=== PATIENT | male | born 1945 | race Caucasian/White ===

== ENCOUNTER 2018-01-22 12:50 | Emergency (ER) | payer SELFPAY ==
--- OUTSIDE RECORDS SUMMARY | 2018-01-22 12:54 | XMS REPORT | Continuity of Care Document ---
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Confirmed</span [place] >) [facility] Diabetes Active Problem 08/29/2015 OPID mellitus type 2 [facility] DM - Diabetes Resolved Problem 08/29/2015 OPID mellitus [facility] Grieving Resolved Problem 08/29/2015 OPID [facility]it,[facility] HTN - Res[facility] 08/29[facility] CAD Resolved Problem 03/07/2013 [facility] Grieving Resolved Problem 03/07/2013 [facility] INTESTINAL Active [facility] OBSTRUCT [facility] Medications Medication Details Route Status Patient Ordering Order Source Instructions Provider Date Fentanyl 100 Inactive 08/25[facility] microgram, 2015 Medical Route: IV, Center ONCE, Dosing Weight 90.909, kg, Start date: 08/26/15 13:16:00 CDT, Stop date: 08/26/15 13:16:00 CDT Midazolam 2 mg, Route: Inactive 08/25/ [facility] IVP, ONCE, 2015 Medical Dosing Weight Center 90.909, kg, Start date: 08/26/15 13:16:00 CDT, Stop date: 08/26/15 13:16:00 CDT iodixanol 200 mL, Inactive 08/25/ [facility] Route: 2016 Medical INTRAARTERIAL Center , ONCE, Dosing Weight 90.909, kg, Start date: 08/26/15 13:16:00 CDT, Stop date: 07/20/16 13:16:00 CDT docusate sodium 100 100 mg=1 cap, Active [facility] mg oral capsule PO, BID, # 30 2013 Medical cap, 0 Center Refill(s) acetaminophen-hydroco 1 tab, PO, Active [facility] [place] done 325 mg-5 mg oral Q4H, Pain 2013 Medical tablet Score 1-3, # Center 30 tab, 0 Refill(s) sertraline 50 mg, 1 tab, No Longer [place] Route: PO, Active 2013 Medical Drug form: Center TAB, Bedtime, Dosing Weight 111.364, kg, Start date: 03/04/13 21:00:00, Duration: 30 day, Stop date: 04/02/13 21:00:00(Same as: Zoloft) meloxicam 15 mg, 1 tab, No Longer [place] Route: PO, 2013 Medical Drug form: Center TAB, Daily, Dosing Weight 111.364, kg, Start date: 03/04/13 21:00:00, Duration: 30 day, Stop date: 04/02/13 21:00:00(Same as: Mobic) gabapentin 600 mg, 2 No Longer [place] cap, Route: Active 2013 Medical PO, Drug Center form: CAP, Daily, Dosing Weight 111.364, kg, Start date: 03/04/13 21:00:00, Duration: 30 day, Stop date: 04/02/13 21:00:00(Same as: Neurontin) Lovenox 40 mg, 0.4 No Longer [place] mL, Route: Active 2013 Medical SUB-Q, Drug Center form: INJ, [id number], Dosing Weight 111.364, kg, Start date: 03/04/13 21:00:00, Duration: 30 day, Stop date: 04/02/13 21:00:00(Same as: Lovenox) Cipro 400 mg, 200 No Longer [place] [facility] mL, Route: Active 2013 Medical IVPB, Drug Center form: INJ, [id number], Start date: 03/04/13 20:00:00, Duration: 30 day, Stop date: 04/03/13 8:00:00Do not refrigerate Flagyl 500 mg, 100 No Longer [place] mL, Route: Active 2013 Medical IVPB, Drug Center form: INJ, [id number], Dosing Weight 111.364, kg, Start date: 03/04/13 18:00:00, Duration: 30 day, Stop date: 04/03/13 12:00:00(Same as: Flagyl) Avoid alcohol. ciprofloxacin 200 mg, 100 Inactive [place] mL, Route: 2013 Medical IVPB, Drug Center form: INJ, [id number], Dosing Weight 111.364, kg, Start date: 03/04/13 18:00:00, Duration: 30 day, Stop date: 04/03/13 6:00:00 Protonix 40 mg, 1 tab, No Longer [place] [facility] Route: PO, Active 2013 Medical Drug form: Center ECTAB, Before Dinner, Start date: 03/04/13 16:30:00, Duration: 30 day, Stop date: 04/02/13 16:30:00Table t should not be chewed or crushed. (Same as: Protonix) Mobic 15 mg oral 15 mg=1 tab, Active [place] tablet PO, Daily, # 2013 Medical 30 tab, 0 Center Refill(s) Humalog SUB-Q, PUMP, Active [facility] 0 2013 Medical Refill(s)PUMP Center nitroglycerin PO, as needed Active [facility] for chest 2013 Medical pain, 0 Center Refill(s) melatonin 1 mg, PO, Active [facility] Bedtime, 0 2013 Medical Refill(s) Center Effient 10 mg oral 10 mg=1 tab, Active [facility] tablet PO, Daily, # 2013 Medical 30 tab, 0 Center Refill(s) aspirin 81 mg tablet, 81 mg=1 tab, Active [facility] enteric coated PO, Daily, # 2013 Medical 0 tab, 0 Center Refill(s) Norvasc 10 mg, 1 tab, No Longer [place] Route: PO, Active 2013 Medical Drug form: Center TAB, Daily, Dosing Weight 111.364, kg, Start date: 03/04/13 11:00:00, Duration: 30 day, Stop date: 04/03/13 9:00:00(Same as: Norvasc) acetaminophen-hydroco 1 tab, Route: No Longer ord [place] done 325 mg-5 mg oral PO, Drug Active 2013 Medical tablet Form: TAB, Center Dosing Weight 111.364, kg, Q4H, PRN Pain Score 1-3, Start date: 03/04/13 9:20:00, Duration: 30 day, Stop date: 04/03/13 9:19:00(Same as: Weed 325/5) Do not exceed 4gm/day of acetaminophen . aspirin 81 mg, 1 tab, No Longer [place] [facility] Route: PO, Active 2013 Medical Drug form: Center CHEWTAB, Daily, Dosing Weight 111.364, kg, Start date: 03/04/13 9:00:00, Stop date: 04/02/13 9:00:00Take with food. metoprolol tartrate 50 mg, 1 tab, No Longer [place] [facility] Route: PO, Active 2013 Medical Drug form: Center TAB, BID, Dosing Weight 111.364, kg, Start date: 03/04/13 9:00:00, Stop date: 04/02/13 17:00:00(Same as: Lopressor) hydrochlorothiazide 12.5 mg, 1 No Longer [place] [facility] cap, Route: Active 2013 Medical PO, Drug Center form: CAP, Daily, Dosing Weight 111.364, kg, Start date: 03/04/13 9:00:00, Stop date: 04/02/13 9:00:00(Same as: Microzide) With food. lansoprazole 30 mg, Route: Inactive [facility] PO, Daily, 2013 Medical Dosing Weight Center 111.364, kg, Start date: 03/04/13 9:00:00, Duration: 30 day, Stop date: 04/02/13 9:00:00 losartan 100 mg, 2 No Longer [place] [facility] tab, Route: Active 2013 Medical PO, Drug Center form: TAB, Daily, Dosing Weight 111.364, kg, Start date: 03/04/13 9:00:00, Stop date: 04/02/13 9:00:00(Same as: Cozaar) Effient 10 mg, 1 tab, No Longer [place] [facility] Route: PO, Active 2013 Medical Drug form: [place] TAB, Daily, Dosing Weight 111.364, kg, Start date: 03/04/13 9:00:00, Duration: 30 day, Stop date: 04/02/13 9:00:00Same as Effient For patients 60kg, without history of TIA/Ischemic stroke and without likely bypass surgery amLODIPine 10 mg, 1 tab, Inactive [facility] Route: PO, 2013 Medical Drug form: [place] TAB, Daily, Dosing Weight 111.364, kg, Start date: 03/04/13 9:00:00, Duration: 30 day, Stop date: 04/02/13 9:00:00(Same as: Norvasc) pneumococcal 0.5 ml, Inactive SYSTEM [facility] 23-valent vaccine Route: IM, 2013 Medical Drug Form: [place] INJ, Daily, Start date: 03/04/13 9:00:00, Duration: 1 doses or times, Stop date: 03/04/13 9:00:00(Same as: Pneumovax 23) Refrigerate docusate 100 mg, 1 No Longer [place] [facility] cap, Route: Active 2013 Medical PO, Drug Center form: CAP, BID, Dosing Weight 111.364, kg, Start date: 03/04/13 9:00:00, Duration: 30 day, Stop date: 04/02/13 17:00:00(Same as: Colace) (Do Not Crush) Zoloft 50 mg, PO, Active [facility] Bedtime, 0 2013 Medical Refill(s) Center Insulin regular 8 unit, 0.08 No Longer [place] [facility] mL, Route: Active 2013 Medical SUB-Q, Drug Center form: SOLN, TID-Before Meals, Dosing Weight 111.364, kg, PRN Blood Glucose Results, Start date: 03/04/13 1:00:00, Duration: 30 day, Stop date: 04/03/13 0:59:00(Same as: Humulin R) Roll in palms of hands gently; Do not shake vigorously. "single patient use only" (Restricted to patients requiring a dose > 60 units) Stable for 28 days at room temperature Expires in days from _Date enoxaparin 40 mg, 0.4 Inactive [facility] mL, Route: 2013 Medical SUB-Q, Drug Center form: INJ, [id number], Dosing Weight 111.364, kg, Start date: 03/04/13 1:00:00, Duration: 30 day, Stop date: 04/02/13 1:00:00(Same as: Lovenox) Dextrose 50% Syringe 12.5 gm, 25 No Longer [place] [facility] mL, Route: Active 2013 Medical IVP, Drug Center Form: INJ, Dosing Weight 111.364, kg, PRN, PRN Blood Glucose Results, Start date: 03/04/13 1:00:00, Duration: 30 day, Stop date: 04/03/13 0:59:00 glucagon 1 mg, Route: No Longer [place] [facility] IM, Drug Active 2013 Medical form: Center PDR/INJ, PRN, Dosing Weight 111.364, kg, PRN Blood Glucose Results, Start date: 03/04/13 1:00:00, Duration: 30 day, Stop date: 04/03/13 0:59:00 LR IV 1,000 mL 1,000 mL, No Longer [place] [facility] Rate: 125 Active 2013 Medical ml/hr, Infuse Center over: 8 hr, Route: IV, Dosing Weight 111.364 kg, Total Volume: 1,000, Start date: 03/04/13 0:35:00, Duration: 30 day, Stop date: 04/03/13 0:34:00 docusate 100 mg, Inactive [place] [facility] Route: PO, 2013 Medical BID, Dosing Center Weight 111.364, kg, PRN Constipation, Start date: 03/04/13 0:33:00, Duration: 30 day, Stop date: 04/03/13 0:32:00 morphine Sulfate 2 mg, 1 mL, No Longer [place] [facility] Route: IVP, Active 2013 Medical Drug form: Center INJ, Q3H, Dosing Weight 111.364, kg, PRN Pain Score 4-6, Start date: 03/04/13 0:33:00, Duration: 30 day, Stop date: 04/03/13 0:32:00(Same as:MORPhine Sulfate) acetaminophen-hydroco 1 tab, Route: Inactive [place] 03/04[facility] [place] done 325 mg-5 mg oral PO, Drug 2013 Medical tablet Form: TAB, Center Dosing Weight 111.364, kg, Q4H, PRN Pain Score 1-3, Start date: 03/04/13 0:33:00, Duration: 30 day, Stop date: 04/03/13 0:32:00(Same as: Weed 325/5) Do not exceed 4gm/day of acetaminophen . Sodium Chloride 0.9% 1,000 mL, Inactive [place] 03/04[facility] IV 1,000 mL Rate: 1,000 2013 Medical ml/hr, Infuse Center over: 1 hr, Route: IV, Dosing Weight 111.364 kg, Total Volume: 1,000, Priority: STAT, Start date: 03/03/13 23:23:00, Duration: 1 doses or times, Stop date: 03/04/13 0:22:00, [facility] DoseBolus Dose Sodium Chloride 0.9% 1,000 mL, Inactive [place] 03/04[facility] IV 1,000 mL Rate: 1,000 2013 Medical ml/hr, Infuse Center over: 1 hr, Route: IV, Dosing Weight 111.364 kg, Total Volume: 1,000, Priority: STAT, Start date: 03/03/13 22:10:00, Duration: 1 doses or times, Stop date: 03/03/13 23:09:00, [place] DoseBolus Dose Allergies, Adverse Reactions, Alerts Substance Category Reaction Severity Reaction Status Date Comments Source type Reported Immunizations Immunization Date Given Site Status Last Updated Comments Source pneumococcal 03/04/2013 Not Given [facility] 23[facility]valent [facility] 03/04/2013 Not Given [place] [facility] 23-valent vaccine [facility] Results Order Name Results Value Reference Date Interpretation Comments Source Range HEMATOLOGY PTT 27.4 s 22.9 - 08/25 [facility] 35.8 /2016 [facility] HEMATOLOGY PT 14.0 s 12.0 - 08/25 [facility] 14.7 /2016 [facility] HEMATOLOGY INR 1.05 0.85 - 08/25 [facility] 1.17 [facility] Angiogram Angiogram PROCEDURE: 08/25 - [facility] cervical cervical /2015 - Medical artery artery 1. Diagnostic Cerebral Angiogram: This report was dictated by a Shop Foreman/Fellow. I have personally reviewed the images as Center bilateral bilateral VR well as the Resident's interpretation and agree with the findings. VR 2. 3D angiography: Bilateral internal carotid arteries Read by: Anderson Louise MD Resident: Anderson oLuise MD Dictated Date/time: 08/26/15 15:21 Electronically Signed by: Vicky Hinton MD 08/26/15 16:57 FINAL REPORT DATE: 08/26/2015 12:35 PM CDT INDICATION: Due to the patient clinical presentation,Cerebral angiogram is requested for further evaluation of the intracranial circulation and to rule out intracranial aneurysm or dural arteriovenous fistula. 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 He sustained an acute episode of diplopia with right eye esotropia . Cerebral angiogram is requested for fur ther evaluation of the intracranial circulation and to rule out intracranial aneurysm or dural arteriovenous fistula. ATTENDING: Vicky Hinton M.D. He was present and immediately available for entire procedure, performing all critical portions. Reviewed all angiographic results. FELLOW: Anderson Owen M.D. COMPARISON: None PROCEDURE: Informed consent was obtained describing all the risks, benefits and alternatives of the procedure the patient was brought to the interventional suite placed in the supine position where mode rate sedation was administered under the supervision of the attending. The patient was then prepped and draped in sterile fashion. The Right femoral artery was accessed using single wall micropuncture technique and a 5 Cambodian sheath was placed. A 5 Cambodian Vert catheter was coaxially advanced with a 0.035 Terumo Glidewire through the sheath into aorta arch to select the below mentioned arteries using roadmap technique. Two-dimensional and selective 3-D cerebral angiogram runs were performed. After review of the angiography data, the catheter was withdrawn. Right femoral artery angiogram was perfor med and the catheter was removed. The femoral artery sheath removed and closed by Application of Mynx closure device Post procedure neurological examination was at the patient's baseline. The patie nt was was then transferred to interventional holding area for post procedure care. MEDICATIONS: 0.5% Lidocaine SQ 20 cc 1 mg Versed 50 micrograms Fentanyl CONTRAST: 80 cc. RADIATION DOSE: Cumulative Air KERMA Frontal: 964 mGy Cumulative Air KERMA Lateral: 303 mGy FLUOROSCOPY TIME: 8.7 minutes TASKS: 1. Right femoral artery catheterization with 2-D angiogram run 2. Right external carotid artery selective catheterization with 2D angiogram run 3. Right Internal carotid artery selective catheterization and 2D/3D angiogram Runs 4. Right subclavian artery selective catheterization and 2D angiogram Runs 5. Left common carotid artery catheterization and 2D angiogram Runs 6. Left Internal carotid artery selective catheterization and 2D/ 3D angiogram Runs 7. Left vertebral artery selective catheterization and 2D angiogram Runs 8. Application of Mynx closure device FINDINGS: 1- Right common carotid artery: Right common carotid reveals normal takeoff of the internal carotid artery and external carotid artery and terminal branches. The bifurcation showed some contour irregula rity with no significant stenosis. No early venous shunting is present. 2. Right external carotid artery: External carotid artery injection shows normal opacification of the external carotid artery and its terminal branches. There is no evidence of tumor blush, arteriovenous shunting or other abnormalities. 3. Right internal carotid artery: Right internal carotid artery injection revealed brisk opacification of the internal carotid artery (ICA), middle cerebral artery (MCA), and the anterior cerebral arter y (MANI). Evidence of small infundibulum associated with the origin of right anterior choroidal artery. 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 No aneurysm, arteriovenous malformation or fistula. Capillary and Venous phases show normal opacification without any evidence of perfusion deficits or abnormal flow obstruction. 4. Right vertebral artery: Right subclavian artery injection revealed opacification of the right vertebral artery, right posterior inferior cerebral artery , bilateral anterior inferior cerebellar catrachito cheryle, basilar trunk, bilateral superior cerebellar artery and bilateral posterior cerebral artery. No aneurysm, arteriovenous fistula or malformation. . Capillary and Venous phases show normal opacifica tion without any evidence of perfusion deficits or abnormal flow obstruction. 5. Left common carotid artery: Left common carotid reveals normal takeoff of the cervical internal carotid artery and external carotid artery and terminal branches. The bifurcation showed some contour i rregularity with 20% stenosis , most likely due to atherosclerotic disease causing non flow limiting stenosis . No early venous shunting is present. 6. Left external carotid artery: Left common carotid artery injection shows normal opacification of the external carotid artery and its terminal branches. There is no evidence of tumor blush, arteriovenous shunting or other abnormalities. 7. Left internal carotid artery: Left internal carotid artery injection reveals brisk opacification of the internal carotid artery (ICA), middle cerebral artery (MCA), and the anterior cerebral artery (MANI). There is evidence of infundibular origin of left posterior communicating artery measuring 3.5 mm. 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 No aneurysm, arteriovenous malformation or fistula. Capillary and Venous phases show normal opacification without any evidence of perfusion deficits or abnormal flow obstruction. 8. Left vertebral artery: Left vertebral artery injection reveals ossification of the left vertebral artery, left posterior inferior cerebellar artery, bilateral anterior inferior cerebellar artery, bas ilar trunk, bilateral superior cerebellar artery and bilateral posterior cerebral artery. No aneurysm, arteriovenous fistula or malformation. . Capillary and Venous phases show normal opacification with out any evidence of perfusion deficits or abnormal flow obstruction. IMPRESSION: 1. No evidence of aneurysm, arteriovenous malformation, dural arteriovenous fistula or other vascular abnormality 2. 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 3. Left internal carotid artery origin 20% stenosis. 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 Multiplanar imaging is subsequently obtained following intravenous gadolinium contrast. IV contrast: 10 mL Omniscan FINDINGS: Diffusion-weighted images and correlative maps of apparent diffusion coefficient demonstrate no acute ischemic change. Scattered areas of high T2 signal in the periventricular white matter, consistent with chronic microvascular ischemic changes are identified. The ventricles and sulci are prominent as are result of age- related volume loss. The vascular flow voids are normal. There is mucosal thickening in the right frontal and maxillary sinuses. Post-contrast images reveal no abnormal parenchymal or leptomeningeal enhancement. The vascular structures enhance uneventfully. IMPRESSION: Chronic microvascular ischemic changes and volume loss. I do not identify any enhancing lesions. CHEMISTRY Phosphorus 3.1 mg/dL 2.5 - 4.5 03/05 Normal [facility] CHEMISTRY Magnesium Lvl 1.4 mg/dL 1.8 - 2.4 03/05 LOW [facility] CHEMISTRY eGFR 89 03/05 4Result Comment: The eGFR is calculated using the CKD-EPI formula. In most young, healthy individuals the eGFR will be >90 mL/ min/1.73m2. The eGFR declines with age. An eGFR of 60-89 may be normal in [facility] mL/min/1. some populations, particularly the elderly, for whom the CKD-EPI formula has not been extensively validated. Use of the eGFR is not recommended in the following populations: [place] [id number] Center Individuals with unstable creatinine concentrations, including patients and those with serious co-morbid conditions. Patients with extremes in muscle mass or diet. The data above are obtained from the National Kidney Disease Education Program (NKDEP) which additionally recommends that when the eGFR is used in patients with extremes of body mass index for purposes of drug dosing, the eGFR should be multiplied by the estimated BMI. CHEMISTRY Glucose Lvl 131 mg/dL 70 - 99 03/05 HI 6Interpretive Data: Adult reference range values reflect the clinical guidelines of the [place] [employer]. [facility] CHEMISTRY CO2 25 meq/L 24 - 32 03/05 Normal [facility] CHEMISTRY Calcium Lvl 8.4 mg/dL 8.5 - 10.5 03/05 LOW [facility] CHEMISTRY Sodium Lvl 141 meq/L 135 - 145 03/05 Normal [facility] CHEMISTRY Creatinine 0.9 mg/dL 0.5 - 1.4 03/05 Normal [facility] CHEMISTRY BUN 9 mg/dL 7 - 22 03/05 Normal [facility] CHEMISTRY Chloride Lvl 103 meq/L 95 - 109 03/05 Normal [facility] CHEMISTRY Potassium Lvl 3.8 meq/L 3.5 - 5.1 03/05 Normal [facility] CHEMISTRY AGAP 16.8 meq/L 10.0 - 03/05 Normal [place] 20.0 [facility] HEMATOLOGY RDW 13.7 % 11.5 - 03/05 Normal [place] 14.5 /2013 [facility] HEMATOLOGY MPV 8.1 fL 7.4 - 10.4 03/05 Normal [facility] HEMATOLOGY MCHC 34.2 g/dL 32.0 - 03/05 Normal [place] 36.0 /2013 [facility] HEMATOLOGY MCH 30.2 pg 27.0 - 03/05 Normal [place] 31.0 [facility] HEMATOLOGY Platelet 200 K/CMM 133 - 450 03/05 Normal [facility] HEMATOLOGY MCV 88.2 fL 80.0 - 03/05 Normal [place] 94.0 [facility] HEMATOLOGY Hct 39.5 % 42.0 - 03/05 LOW [place] 54.0 [facility] HEMATOLOGY WBC X 10x3 6.8 K/CMM 3.7 - 10.4 03/05 Normal [facility] HEMATOLOGY RBC X 10x6 4.48 M/CMM 4.70 - 03/05 LOW [facility] 6.10 /2013 [facility] HEMATOLOGY Hgb 13.5 g/dL 14.0 - 03/05 LOW [facility] 18.0 /2013 [facility] HEMATOLOGY Eosinophils 3.1 % 0.0 - 4.0 03/05 Normal [facility] HEMATOLOGY Monocytes 8.3 % 2.0 - 12.0 03/05 Normal [facility] HEMATOLOGY Basophils 0.7 % 0.0 - 1.0 03/05 Normal [facility] HEMATOLOGY Eosinophils # 0.2 K/CMM 0.0 - 0.5 03/05 Normal [facility] HEMATOLOGY Monocytes # 0.6 K/CMM 0.0 - 0.8 03/05 Normal [facility] HEMATOLOGY Lymphocytes # 2.1 K/CMM 1.0 - 5.5 03/05 Normal [facility] HEMATOLOGY Segs-Bands # 3.9 K/CMM 1.5 - 8.1 03/05 Normal [facility] HEMATOLOGY Lymphocytes 30.4 % 20.0 - 03/05 Normal [place] 40.0 /2013 [facility] HEMATOLOGY Segs 57.5 % 45.0 - 03/05 Normal [place] 75.0 [facility] BEDSIDE Glucose POC 118 mg/dL 70 - 99 03/05 HI 1Interpretive [facility] GLUCOSE Data: Medical TESTING Center Upper Reportable Limit: 200 mg/dL. CHEMISTRY Total CK 60 unit/L - 03/05 Normal [facility] BEDSIDE Glucose POC 96 mg/dL 70 - 99 03/05 Normal 2Interpretive [facility] Data: Medical TESTING Center Upper Reportable Limit: 200 mg/dL. CHEMISTRY Total CK 65 unit/L - 03/05 Normal [facility] BEDSIDE Gluc POC Notified 03/04 [facility] GLUCOSE Comment 1 RN/ [facility] TESTING Center BEDSIDE Glucose POC 96 mg/dL 70 - 99 03/04 Normal 3Interpretive [facility] GLUCOSE Data: Medical TESTING Center Upper Reportable Limit: 200 mg/dL. CHEMISTRY Total CK 63 unit/L - 03/04 Normal [facility] CHEMISTRY Troponin-I null 0.00 - 03/04 Normal [facility] 0.40 [facility] BEDSIDE Gluc POC Notified 03/04 [facility] GLUCOSE Comment 1 RN/ [facility] TESTING [place] Chest 1view Chest 1view EXAM: CHEST 1 VIEW 03/04 - - Medical This report was dictated by a Shop Foreman/Fellow. I have personally reviewed the images as Center well as the Resident's interpretation and agree with the findings. DATE: 2013-03-04 14:12:00 Read by: Elbert Naranjo Resident: Elbert Naranjo Dictated Date/time: 03/04/13 14:35 Electronically Signed by: Sagar Ambrosio MD 03/04/13 16:11 FINAL REPORT INDICATION: Abnormal chest sounds COMPARISON: 03/03/2013 chest 2 views TECHNIQUE: Semiupright AP radiograph of the chest. FINDINGS: The lungs are adequately inflated without focal consolidation. No pneumothorax or pleural effusion seen. Cardiomediastinal silhouette is within normal limits. The skeletal structures are unremarkable. IMPRESSION: No acute intrathoracic abnormality, stable exam from 2013 CHEMISTRY Magnesium Lvl 1.8 mg/dL 1.8 - 2.4 03/04 Normal [facility] CHEMISTRY Phosphorus 4.0 mg/dL 2.5 - 4.5 03/04 Normal [facility] URINALYSIS UA Bili Negative Negative 03/04 Medical *NA* Center (03/04/2013 00:21:00) URINALYSIS UA Ketones Negative Negative 03/04 [facility] mg/dL [facility] URINALYSIS UA 0.2 EU/dL 0.1 - 1.0 03/04 Normal [facility] Urobilinogen /2013 [facility] URINALYSIS UA Blood Negative Negative 03/04 Normal [facility] (03/04/2013 00:21:00) Center URINALYSIS UA Leuk Est Negative Negative 03/04 Normal [facility] (03/04/2013 00:21:00) Center URINALYSIS UA Nitrite Negative Negative 03/04 Normal [facility] (03/04/2013 00:21:00) Center URINALYSIS UA Spec Grav 1.015 <=1.030 03/04 Normal [facility] URINALYSIS UA Protein Negative Negative 03/04 Normal [facility] mg/dL [facility] URINALYSIS UA Turbidity Clear Clear 03/04 Normal [facility] (03/04/2013 00:21:00) Center URINALYSIS UA Color Yellow Yellow 03/04 Medical *NA* [place] (03/04/2013 00:21:00) URINALYSIS UA pH 6.0 5.0 - 8.0 03/04 Normal [facility] URINALYSIS UA Glucose 250 mg/dL Negative 03/04 ABN [facility] URINALYSIS UA WBC None Seen None Seen 03/04 Normal [facility] (03/04/2013 00:21:00) Center URINALYSIS UA RBC None Seen 0 - 2 03/04 Normal [facility] (03/04/2013 00:21:00) Center URINALYSIS UA Sq Epi None Seen Few 03/04 Normal [facility] (03/04/2013 00:21:00) Center CHEMISTRY Temp Yassine 37.0 Alannah 03/04 [facility] CHEMISTRY pCO2 Yassine 40 mm[Hg] 38 - 52 03/04 Normal [facility] CHEMISTRY pO2 Yassine 80 mm[Hg] 20 - 49 03/04 HI [facility] CHEMISTRY HCO3 Yassine 23 mMol/L 22 - 03/04 Normal [facility] CHEMISTRY pH Yassine 7.37 7.28 - 03/04 Normal [facility] CHEMISTRY BE Yassine -2 mMol/L -2-2 - 2 03/04 Normal [facility] CHEMISTRY O2 Sat Yassine 95.4 % 40.0 - 03/04 HI [facility] 70.0 [facility] HEMATOLOGY aPTT 29.2 s 22.9 - 03/04 Normal 8Interpretive [facility] 35.8 /2013 Data: [facility] Range: 57 - 92 Seconds CHEMISTRY ASPARTATE 18 unit/L 0 - 37 03/04 Normal [facility] CHEMISTRY Bili Total 0.5 mg/dL 0.2 - 1.3 03/04 Normal [facility] CHEMISTRY Bili Direct 0.1 mg/dL 0.0 - 0.3 03/04 Normal [facility] CHEMISTRY Albumin Lvl 3.5 g/dL 3.5 - 5.0 03/04 Normal [facility] CHEMISTRY Total Protein 7.5 g/dL 6.4 - 8.4 03/04 Normal [facility] CHEMISTRY ALANINE 27 unit/L 0 - 65 03/04 Normal [facility] AMINO [facility] CHEMISTRY Alk Phos 72 unit/L 39 - 136 03/04 Normal [facility] CHEMISTRY Globulin 4.0 g/dL 2.0 - 4.0 03/04 Normal [facility] CHEMISTRY A/G Ratio 0.9 0.7 - 1.6 03/04 Normal [facility] CHEMISTRY Bili Indirect 0.4 mg/dL 0.0 - 1.0 03/04 Normal [facility] CHEMISTRY Lipase Lvl 104 unit/L 73 - 393 03/04 Normal [facility] CHEMISTRY Lactic Acid 1.0 mMol/L 0.5 - 2.2 03/04 Normal [facility] CHEMISTRY CO2 25 meq/L 24 - 32 03/04 Normal [facility] CHEMISTRY Chloride Lvl 102 meq/L 95 - 109 03/04 Normal [facility] CHEMISTRY Calcium Lvl 9.0 mg/dL 8.5 - 10.5 03/04 Normal [facility] CHEMISTRY Potassium Lvl 4.2 meq/L 3.5 - 5.1 03/04 Normal [facility] CHEMISTRY Creatinine 1.2 mg/dL 0.5 - 1.4 03/04 Normal [facility] CHEMISTRY Sodium Lvl 137 meq/L 135 - 145 03/04 Normal [facility] CHEMISTRY Glucose Lvl 188 mg/dL 70 - 99 03/04 [place] 7Interpretive Data: Adult reference range values reflect the clinical guidelines of the [place] [employer]. [facility] CHEMISTRY BUN 19 mg/dL 7 - 03/04 Normal [facility] CHEMISTRY eGFR 63 03/04 5Result Comment: The eGFR is calculated using the CKD-EPI formula. In most young, healthy individuals the eGFR will be >90 mL/ min/1.73m2. The eGFR declines with age. An eGFR of 60-89 may be normal in [facility] mL/min/1.7 some populations, particularly the elderly, for whom the CKD-EPI formula has not been extensively validated. Use of the eGFR is not recommended in the following populations: [address] Individuals with unstable creatinine concentrations, including patients and those with serious co-morbid conditions. Patients with extremes in muscle mass or diet. The data above are obtained from the National Kidney Disease Education Program (NKDEP) which additionally recommends that when the eGFR is used in patients with extremes of body mass index for purposes of drug dosing, the eGFR should be multiplied by the estimated BMI. CHEMISTRY AGAP 14.2 meq/L 10.0 - 03/04 Normal [facility] 20.0 [facility] HEMATOLOGY Lymphocytes 10.2 % 20.0 - 03/04 LOW [facility] 40.0 [facility] HEMATOLOGY Segs 84.3 % 45.0 - 03/04 HI [facility] 75.0 [facility] HEMATOLOGY Plt Morph Normal 03/04 Normal [facility] (03/03/2013 21:55:00) [place] HEMATOLOGY Eosinophils 0.6 % 0.0 - 4.0 03/04 Normal [facility] HEMATOLOGY Monocytes 4.9 % 2.0 - 12.0 03/04 Normal [facility] HEMATOLOGY Basophils 0.0 % 0.0 - 1.0 03/04 [facility] HEMATOLOGY Basophils # 0.0 K/CMM 0.0 - 0.2 03/04 Normal [facility] HEMATOLOGY Eosinophils # 0.1 K/CMM 0.0 - 0.5 03/04 [facility] HEMATOLOGY Monocytes # 0.7 K/CMM 0.0 - 0.8 03/04 Normal [facility] HEMATOLOGY Lymphocytes # 1.4 K/CMM 1.0 - 5.5 03/04 Normal [facility] HEMATOLOGY Segs-Bands # 11.6 K/CMM 1.5 - 8.1 03/04 HI [facility] HEMATOLOGY MPV 7.8 fL 7.4 - 10.4 03/04 Normal [facility] HEMATOLOGY Platelet 250 K/CMM 133 - 450 03/04 Normal [facility] HEMATOLOGY RDW 12.7 % 11.5 - 03/04 Normal [facility] 14.5 [facility] HEMATOLOGY MCHC 32.9 g/dL 32.0 - 03/04 Normal [facility] 36.0 [facility] HEMATOLOGY MCH 28.6 pg 27.0 - 03/04 Normal [facility] 31.0 [facility] HEMATOLOGY MCV 87.0 fL 80.0 - 03/04 Normal [facility] 94.0 [facility] HEMATOLOGY Hct 42.1 % 42.0 - 03/04 Normal [facility] 54.0 [facility] HEMATOLOGY Hgb 13.8 g/dL 14.0 - 03/04 LOW [facility] 18.0 [facility] HEMATOLOGY RBC X 10x6 4.83 M/CMM 4.70 - 03/04 Normal [facility] 6.10 [facility] HEMATOLOGY WBC X 10x3 13.8 K/CMM 3.7 - 10.4 03/04 HI [facility] Abdomen AP Abdomen AP EXAM: XR Abdomen 1 view 03/04 - [facility] view - [facility] DATE: Mar 04, 2013 01:12 AM Read by: Afshin Hagen Dictated Date/time: 03/04/13 01:47 Electronically Signed by: Afshin Hagen MD 03/04/13 01:55 FINAL REPORT INDICATION: Abdominal distension COMPARISON: Outside CT abdomen pelvis 03/03/2013. TECHNIQUE: A total of 3 AP supine images of the abdomen and pelvis. FINDINGS: There is a transesophageal gastric suction tube extending to the gastroesophageal junction. There is mild gaseous dilatation of loops of small bowel within the midabdomen, decreased compared to the prio r outside CT. There is no gastric or large bowel dilatation. There is no organomegaly or appreciable free abdominal fluid. Evaluation for free gas is limited on this supine examination. There is contras t noted within a mildly distended urinary bladder from the recent CT. There is atherosclerotic calcification of the splenic artery and abdominal aorta. There is advanced disc disease throughout the lumbar spine with adjacent spur formation. The included lung bases demonstrate slight blunting of the right lateral recess that may indicate a trace pleural effusion or extrapleural fat. Median sternotomy wires and mediastinal surgical clips are noted. IMPRESSION: 1. Interval placement of a gastric suction tube extending to the gastroesophageal junction. Recommend further advancement into the stomach. 2. Decrease in prominence of gaseous dilatation of mid small bowel loops compared to the recent outside CT abdomen and pelvis. No gastric or large bowel dilatation is noted. Vital Signs Vital Sign Value Date Comments Source Respitory Rate 20 08/26/2015 [facility] Respitory Rate 10 08/26/2015 [facility] Systolic (mm Hg) 173 08/26/2015 [facility] Diastolic (mm Hg) 98 08/26/2015 [facility] Systolic (mm Hg) 165 08/26/2015 [facility] Diastolic (mm Hg) 94 08/26/2015 [facility] Respitory Rate 7 08/26/2015 [facility] Systolic (mm Hg) 157 08/26/2015 [facility] Diastolic (mm Hg) 91 08/26/2015 [facility] Weight 90.909 08/26/2015 [facility] Height 182.88 cm 08/26/2015 [facility] BMI Calculated 27.18 08/26/2015 [facility] Weight 91.27 08/26/2015 [facility] Height 182.8 cm 08/26/2015 [facility] BMI Calculated 27.31 08/26/2015 [facility] Respitory Rate 17 03/05/2013 [facility] Systolic (mm Hg) 153 03/05/2013 [facility] Diastolic (mm Hg) 99 03/05/2013 [facility] Heart Rate 86 03/05/2013 [facility] Temperature Oral (F) 98.2 F 03/05/2013 [facility] Temperature Oral (F) 98.4 F 03/05/2013 [facility] Heart Rate 77 03/05/2013 [facility] Respitory Rate 18 03/05/2013 [facility] Systolic (mm Hg) 152 03/05/2013 [facility] Diastolic (mm Hg) 89 03/05/2013 [facility] Respitory Rate 18 03/05/2013 [facility] Heart Rate 82 03/05/2013 [facility] Temperature Oral (F) 98.2 F 03/05/2013 [facility] Systolic (mm Hg) 151 03/05/2013 [facility] Diastolic (mm Hg) 88 03/05/2013 [facility] Height 185.42 cm 03/04/2013 [facility] Weight 111.364 03/04/2013 [facility] Height 185.42 cm 03/04/2013 [facility] Weight 111.364 03/04/2013 [facility] Encounters Location Location Encounter Encounter Reason Attending ADM DC Status Source Details Type Number For Provider Date Date Visit [facility] In[facility] [id number] [facility] BRENNON 03/04 03[facility]05 [facility] [id number] Vicky Hinton 08/20 08/21 [facility] /2015 [place] [facility] Bedded [id number] Vicky Hinton 08/25 08/25 [facility] Outpatient /2015 [facility] Outpatient [id number] VICKY HINTON 09/03 [facility] /2015 [place] Procedures Procedure Code Date Perfomer Comments Source Selective catheter 08000 08/26/2015 [facility], external Medical carotid artery, Center unilateral, with angiography of the ipsilateral external carotid circulation and all associated radiological supervision and interpretation (List separately in addition to code for primary procedure) Amputation great toe [id number] [facility] Parmjit Arthrectomy of knee [id number] [facility] for semilunar [place] cartilage excision CABG x 5 - Coronary [id number] [facility] artery bypass grafts [place] x 5 [id number] Placement of stent [id number] [facility] Parmjit Amputation great toe [id number] [facility] Arthrectomy of knee [id number] [facility] for semilunar Medical cartilage excision Center CABG x 5 - Coronary [id number] [facility] artery bypass grafts Medical x 5 Center Knee replacement [id number] [facility] Placement of stent [id number] [facility]
--- OUTSIDE RECORDS SUMMARY | 2018-01-22 12:55 | XMS REPORT | Summary of Care ---
:1945 Author Organization [facility] [place] Address [address], [place] [address]- Encounter HQ Cristinar_bonnie(FIN) [id number] Date(s): 08/21/15 - 08/21/15 [facility] [place] [address] [place] [address]- [phone] Discharge Disposition: Home Attending Physician: Beni Graf MD Vital Signs No data available for this section Problem List Condition Effective Dates Status Health Status Informant Anxiety(Confirmed) Active CAD (coronary artery Resolved disease)(Confirmed) Diabetes mellitus type 2(Confirmed) Active DM - Diabetes mellitus(Confirmed) Resolved Grieving(Confirmed) Resolved HTN - Hypertension(Confirmed) Resolved Allergies, Adverse Reactions, Alerts Substance Reaction Severity Status NKDA Active Medications No data available for this section Results No data available for this section Immunizations Not Given Vaccine Date Status Refusal Reason pneumococcal 23-valent vaccine 03/04/13 Not Given Parent Or Guardian Refuses Procedures Procedure Date Related Diagnosis Body Site Amputation great toe Arthrectomy of knee for semilunar cartilage excision CABG x 5 - Coronary artery bypass grafts x 5 Knee replacement Placement of stent Social History Social History Type Response Substance Abuse Use: None. Alcohol Never Smoking Status Never smoker; Exposure to Tobacco Smoke None; Cigarette Smoking Last 365 Days No; Reg Smoking Cessation Counseling No Assessment and Plan No data available for this section
--- OUTSIDE RECORDS SUMMARY | 2018-01-22 12:55 | XMS REPORT | Summary of Care ---
:1945 Author Organization [facility] Address [address], [place] [address]- Encounter HQ Tatyana(FIN) [id number] Date(s): 08/26/15 - 08/26/15 [facility] [address] [place] [phone]- [place] Discharge Disposition: Home or Self Care Attending Physician: Beni Graf MD Referring Physician: Beni Graf MD Vital Signs Most recent to oldest 1 2 3 [Reference Range]: Height 182.88 cm 182.8 cm (08/26/15 11:41 AM) (08/26/15 6:35 AM) Blood Pressure [90-140/60-90 173/98 mmHg 165/94 mmHg 157/91 mmHg mmHg] *HI* *HI* *HI* (08/26/15 1:45 PM) (08/26/15 1:40 PM) (08/26/15 1:35 PM) Respiratory Rate [14-20 BRMIN] 20 BRMIN 10 BRMIN 7 BRMIN (08/26/15 2:00 PM) *LOW* *LOW* (08/26/15 1:45 PM) (08/26/15 1:40 PM) Weight 90.909 kg 91.27 kg (08/26/15 11:41 AM) (08/26/15 6:35 AM) Body Mass Index 27.18 m2 27.31 m2 (08/26/15 11:41 AM) (08/26/15 6:35 AM) Problem List Condition Effective Dates Status Health Status Informant Anxiety(Confirmed) Active CAD (coronary artery Resolved disease)(Confirmed) Diabetes mellitus type 2(Confirmed) Active DM - Diabetes mellitus(Confirmed) Resolved Grieving(Confirmed) Resolved HTN - Hypertension(Confirmed) Resolved Allergies, Adverse Reactions, Alerts Substance Reaction Severity Status NKDA Active Medications fentaNYL 100 microgram, Route: IV, ONCE, Dosing Weight 90.909, kg, Start date: 08/26/15 13:16:00 CDT, Stop date: 08/26/15 13:16:00 CDT Start Date: 08/26/15 Stop Date: 08/26/15 Status: Completediodixanol 200 mL, Route: INTRAARTERIAL, ONCE, Dosing Weight 90.909, kg, Start date: 13:16:00 CDT, Stop date: 08/26/15 13:16:00 CDT Start Date: 08/26/15 Stop Date: 08/26/15 Status: Completedmidazolam 2 mg, Route: IVP, ONCE, Dosing Weight 90.909, kg, Start date: 08/26/15 13:16:00 CDT, Stop date: 08/26/15 13:16:00 CDT Start Date: 08/26/15 Stop Date: 08/26/15 Status: Completed Results HEMATOLOGY Most recent to oldest [Reference Range]: 1 PT [12.0-14.7 seconds] 14.0 seconds (08/26/15 10:50 AM) INR [0.85-1.17] 1.05 (08/26/15 10:50 AM) PTT [22.9-35.8 seconds] 27.4 seconds (08/26/15 10:50 AM) Immunizations Not Given Vaccine Date Status Refusal Reason pneumococcal 23-valent vaccine 03/04/13 Not Given Parent Or Guardian Refuses Procedures Procedure Date Related Diagnosis Body Site Selective catheter placement, external carotid 08/26/15 artery, unilateral, with angiography of the ipsilateral external carotid circulation and all associated radiological supervision and interpretation (List separately in addition to code for primary procedure) Amputation great toe Arthrectomy of knee for [...]
--- OUTSIDE RECORDS SUMMARY | 2018-01-22 12:55 | XMS REPORT | CCD ---
:1945 Author Organization [facility] Care Team Providers Name Role Phone Cee Fajardo Referring Provider Unavailable Brayan Leo Consulting Provider Allergies, Adverse Reactions, Alerts Substance Reaction Status NKDA Active Problem List Condition Effective Dates Status Anxiety Active CAD (coronary artery disease) Resolved DM - Diabetes mellitus Resolved Grieving Resolved HTN - Hypertension Resolved Medications Medication Instructions Start Date End Date Status LR IV 1,000 mL 1,000 mL, Rate: 125 03/04/2013 03/05/2013 Discontinued ml/hr, Infuse over: 8 hr, Route: IV, Dosing Weight 111.364 kg, Total Volume: 1,000, Start date: 03/04/13 0:35:00, Duration: 30 day, Stop date: 04/03/13 0:34:00 Insulin regular 8 unit, 0.08 mL, Route: 03/04/2013 03/05/2013 Discontinued SUB-Q, Drug form: SOLN, TID-Before Meals, Dosing Weight 111.364, kg, PRN Blood Glucose Results, Start date: 03/04/13 1:00:00, Duration: 30 day, Stop date: 04/03/13 0:59:00(Same as: Humulin R) Roll in palms of hands gently; Do not shake vigorously. "single patient use only"(Restricted to patients requiring a dose > 60 units) Stable for 28 days at room temperatureExpires in days from Date Insulin regular 6 unit, 0.06 mL, Route: 03/04/2013 03/05/2013 Discontinued SUB-Q, Drug form: SOLN, TID-Before Meals, Dosing Weight 111.364, kg, PRN Blood Glucose Results, Start date: 03/04/13 1:00:00, Duration: 30 day, Stop date: 04/03/13 0:59:00(Same as: Humulin R) Roll in palms of hands gently; Do not shake vigorously. "single patient use only"(Restricted to patients requiring a dose > 60 units) Stable for 28 days at room temperatureExpires in days from Date Insulin regular 10 unit, 0.1 mL, Route: 03/04/2013 03/05/2013 Discontinued SUB-Q, Drug form: SOLN, TID-Before Meals, Dosing Weight 111.364, kg, PRN Blood Glucose Results, Start date: 03/04/13 1:00:00, Duration: 30 day, Stop date: 04/03/13 0:59:00(Same as: Humulin R) Roll in palms of hands gently; Do not shake vigorously. "single patient use only"(Restricted to patients requiring a dose > 60 units) Stable for 28 days at room temperatureExpires in days from Date Insulin regular 4 unit, 0.04 mL, Route: 03/04/2013 03/05/2013 Discontinued SUB-Q, Drug form: SOLN, TID-Before Meals, Dosing Weight 111.364, kg, PRN Blood Glucose Results, Start date: 03/04/13 1:00:00, Duration: 30 day, Stop date: 04/03/13 0:59:00(Same as: Humulin R) Roll in palms of hands gently; Do not shake vigorously. "single patient use only"(Restricted to patients requiring a dose > 60 units) Stable for 28 days at room temperatureExpires in days from Date Insulin regular 2 unit, 0.02 mL, Route: 03/04/2013 03/05/2013 Discontinued SUB-Q, Drug form: SOLN, TID-Before Meals, Dosing Weight 111.364, kg, PRN Blood Glucose Results, Start date: 03/04/13 1:00:00, Duration: 30 day, Stop date: 04/03/13 0:59:00(Same as: Humulin R) Roll in palms of hands gently; Do not shake vigorously. "single patient use only"(Restricted to patients requiring a dose > 60 units) Stable for 28 days at room temperatureExpires in days from Date enoxaparin 40 mg, 0.4 mL, Route: 03/04/2013 03/04/2013 Discontinued SUB-Q, Drug form: INJ, [id number], Dosing Weight 111.364, kg, Start date: 03/04/13 1:00:00, Duration: 30 day, Stop date: 04/02/13 1:00:00(Same as: Lovenox) aspirin 81 mg, 1 tab, Route: PO, 03/04/2013 03/05/2013 Discontinued Drug form: CHEWTAB, Daily, Dosing Weight 111.364, kg, Start date: 03/04/13 9:00:00, Stop date: 04/02/13 9:00:00Take with food. sertraline 50 mg, 1 tab, Route: PO, 03/04/2013 03/05/2013 Discontinued Drug form: TAB, Bedtime, Dosing Weight 111.364, kg, Start date: 03/04/13 21:00:00, Duration: 30 day, Stop date: 04/02/13 21:00:00(Same as: Zoloft) metoprolol tartrate 50 mg, 1 tab, Route: PO, 03/04/2013 03/05/2013 Discontinued Drug form: TAB, BID, Dosing Weight 111.364, kg, Start date: 03/04/13 9:00:00, Stop date: 04/02/13 17:00:00(Same as: Lopressor) hydrochlorothiazide 12.5 mg, 1 cap, Route: 03/04/2013 03/05/2013 Discontinued PO, Drug form: CAP, Daily, Dosing Weight 111.364, kg, Start date: 03/04/13 9:00:00, Stop date: 04/02/13 9:00:00(Same as: Microzide) With food. meloxicam 15 mg, 1 tab, Route: PO, 03/04/2013 03/05/2013 Discontinued Drug form: TAB, Daily, Dosing Weight 111.364, kg, Start date: 03/04/13 21:00:00, Duration: 30 day, Stop date: 04/02/13 21:00:00(Same as: Mobsunitha) lansoprazole 30 mg, Route: PO, Daily, 03/04/2013 03/04/2013 Discontinued Dosing Weight 111.364, kg, Start date: 03/04/13 9:00:00, Duration: 30 day, Stop date: 04/02/13 9:00:00 losartan 100 mg, 2 tab, Route: PO, 03/04/2013 03/05/2013 Discontinued Drug form: TAB, Daily, Dosing Weight 111.364, kg, Start date: 03/04/13 9:00:00, Stop date: 04/02/13 9:00:00(Same as: Cozaar) Dextrose 50% Syringe 12.5 gm, 25 mL, Route: 03/04/2013 03/05/2013 Discontinued IVP, Drug Form: INJ, Dosing Weight 111.364, kg, PRN, PRN Blood Glucose Results, Start date: 03/04/13 1:00:00, Duration: 30 day, Stop date: 04/03/13 0:59:00 Dextrose 50% Syringe 25 gm, 50 mL, Route: IVP, 03/04/2013 03/05/2013 Discontinued Drug Form: INJ, Dosing Weight 111.364, kg, PRN, PRN Blood Glucose Results, Start date: 03/04/13 1:00:00, Duration: 30 day, Stop date: 04/03/13 0:59:00 glucagon 1 mg, Route: IM, Drug 03/04/2013 03/05/2013 Discontinued form: PDR/INJ, PRN, Dosing Weight 111.364, kg, PRN Blood Glucose Results, Start date: 03/04/13 1:00:00, Duration: 30 day, Stop date: 04/03/13 0:59:00 gabapentin 600 mg, 2 cap, Route: PO, 03/04/2013 03/05/2013 Discontinued Drug form: CAP, Daily, Dosing Weight 111.364, kg, Start date: 03/04/13 21:00:00, Duration: 30 day, Stop date: 04/02/13 21:00:00(Same as: Neurontin) Effient 10 mg, 1 tab, Route: PO, 03/04/2013 03/05/2013 Discontinued Drug form: TAB, Daily, Dosing Weight 111.364, kg, Start date: 03/04/13 9:00:00, Duration: 30 day, Stop date: 04/02/13 9:00:00Same as Effient For patients < 75 years old, > 60kg, without history of TIA/Ischemic stroke and without likely bypass surgery amLODIPine 10 mg, 1 tab, Route: PO, 03/04/2013 03/04/2013 Discontinued Drug form: TAB, Daily, Dosing Weight 111.364, kg, Start date: 03/04/13 9:00:00, Duration: 30 day, Stop date: 04/02/13 9:00:00(Same as: Norvasc) pneumococcal 23-valent 0.5 ml, Route: IM, Drug 03/04/2013 03/04/2013 Completed vaccine Form: INJ, Daily, Start date: 03/04/13 9:00:00, Duration: 1 doses or times, Stop date: 03/04/13 9:00:00(Same as: Pneumovax 23) Refrigerate docusate 100 mg, Route: PO, BID, 03/04/2013 03/04/2013 Discontinued Dosing Weight 111.364, kg, PRN Constipation, Start date: 03/04/13 0:33:00, Duration: 30 day, Stop date: 04/03/13 0:32:00 morphine Sulfate 2 mg, 1 mL, Route: IVP, 03/04/2013 03/05/2013 Discontinued Drug form: INJ, Q3H, Dosing Weight 111.364, kg, PRN Pain Score 4-6, Start date: 03/04/13 0:33:00, Duration: 30 day, Stop date: 04/03/13 0:32:00(Same as:MORPhine Sulfate) acetaminophen-hydrocodone 1 tab, Route: PO, Drug 03/04/2013 03/04/2013 Discontinued 325 mg-5 mg oral tablet Form: TAB, Dosing Weight 111.364, kg, Q4H, PRN Pain Score 1-3, Start date: 03/04/13 0:33:00, Duration: 30 day, Stop date: 04/03/13 0:32:00(Same as: [place] 325/5) Do not exceed 4gm/day of acetaminophen. acetaminophen-hydrocodone 1 tab, Route: PO, Drug 03/04/2013 03/05/2013 Discontinued 325 mg-5 mg oral tablet Form: TAB, Dosing Weight 111.364, kg, Q4H, PRN Pain Score 1-3, Start date: 03/04/13 9:20:00, Duration: 30 day, Stop date: 04/03/13 9:19:00(Same as: [place] 325/5) Do not exceed 4gm/day of acetaminophen. Flagyl 500 mg, 100 mL, Route: 03/04/2013 03/05/2013 Discontinued IVPB, Drug form: INJ, [id number], Dosing Weight 111.364, kg, Start date: 03/04/13 18:00:00, Duration: 30 day, Stop date: 04/03/13 12:00:00(Same as: Flagyl) Avoid alcohol. ciprofloxacin 200 mg, 100 mL, Route: 03/04/2013 03/04/2013 Discontinued IVPB, Drug form: INJ, [id number], Dosing Weight 111.364, kg, Start date: 03/04/13 18:00:00, Duration: 30 day, Stop date: 04/03/13 6:00:00 docusate sodium 100 mg 100 mg=1 cap, PO, BID, # 03/05/2013 Ordered oral capsule 30 cap, 0 Refill(s) acetaminophen-hydrocodone 1 tab, PO, Q4H, Pain 03/05/2013 Ordered 325 mg-5 mg oral tablet Score 1-3, # 30 tab, 0 Refill(s) Protonix 40 mg, 1 tab, Route: PO, 03/04/2013 03/05/2013 Discontinued Drug form: ECTAB, Before Dinner, Start date: 03/04/13 16:30:00, Duration: 30 day, Stop date: 04/02/13 16:30:00Tablet should not be chewed or crushed.(Same as: Protonix) Humalog SUB-Q, PUMP, 0 Refill(s) 03/04/2013 Ordered PUMP Zoloft 50 mg, PO, Bedtime, 0 03/04/2013 Ordered Refill(s) nitroglycerin PO, as needed for chest 03/04/2013 Ordered pain, 0 Refill(s) Lovenox 40 mg, 0.4 mL, Route: 03/04/2013 03/05/2013 Discontinued SUB-Q, Drug form: INJ, [id number], Dosing Weight 111.364, kg, Start date: 03/04/13 21:00:00, Duration: 30 day, Stop date: 04/02/13 21:00:00(Same as: Lovenox) melatonin 1 mg, PO, Bedtime, 0 03/04/2013 Ordered Refill(s) Effient 10 mg oral tablet 10 mg=1 tab, PO, Daily, # 03/04/2013 Ordered 30 tab, 0 Refill(s) Sodium Chloride 0.9% 1,000 mL, Rate: 1,000 ml/hr, Infuse over: 1 hr, Route: IV , Dosing Weight 111.364 kg, Total Volume: 1,000, Priority: STAT, Start date: 22:10:00, Duration: 1 doses or times, Stop date: 03/03/13 23:09:00, Bolus Dose 03/03/2013 03/03/2013 Completed (Bolus) IV 1,000 mL Bolus Dose aspirin 81 mg tablet, 81 mg=1 tab, PO, Daily, # 03/04/2013 Ordered enteric coated 0 tab, 0 Refill(s) Cipro 400 mg, 200 mL, Route: 03/04/2013 03/05/2013 Discontinued IVPB, Drug form: INJ, [id number], Start date: 03/04/13 20:00:00, Duration: 30 day, Stop date: 04/03/13 8:00:00Do not refrigerate Norvasc 10 mg, 1 tab, Route: PO, 03/04/2013 03/05/2013 Discontinued Drug form: TAB, Daily, Dosing Weight 111.364, kg, Start date: 03/04/13 11:00:00, Duration: 30 day, Stop date: 04/03/13 9:00:00(Same as: Norvasc) Mobic 15 mg oral tablet 15 mg=1 tab, PO, Daily, # 03/04/2013 Ordered 30 tab, 0 Refill(s) docusate 100 mg, 1 cap, Route: PO, 03/04/2013 03/05/2013 Discontinued Drug form: CAP, BID, Dosing Weight 111.364, kg, Start date: 03/04/13 9:00:00, Duration: 30 day, Stop date: 04/02/13 17:00:00(Same as: Colace) (Do Not Crush) Sodium Chloride 0.9% 1,000 mL, Rate: 1,000 ml/hr, Infuse over: 1 hr, Route: IV , Dosing Weight 111.364 kg, Total Volume: 1,000, Priority: STAT, Start date: 23:23:00, Duration: 1 doses or times, Stop date: 03/04/13 0:22:00, Bolus Dose 03/03/2013 03/03/2013 Completed (Bolus) IV 1,000 mL Bolus Dose pneumococcal 23-valent 0.5 ml, Route: IM, Drug 03/04/2013 03/04/2013 Completed vaccine Form: INJ, Start date: 03/04/13 9:00:00, Stop date: 03/04/13 9:00:00 Immunizations Vaccine Date Status pneumococcal 23-valent vaccine 03/04/2013 Not Done Vital Signs Most recent to oldest 1 2 3 [Reference Range]: Height 185.42 cm 185.42 cm (03/04/2013 04:08:00) (03/03/2013 21:16:00) Temperature Oral 98.2 DegF 98.4 DegF 98.2 DegF [96.4-99.1 DegF] (03/05/2013 08:12:00) (03/05/2013 04:19:00) (03/04/2013 23: 33:00) Systolic Blood Pressure 153 mmHg 152 mmHg 151 mmHg [90-140 mmHg] *HI* *HI* *HI* (03/05/2013 08:12:00) (03/05/2013 04:19:00) (03/04/2013 23:33:00) Diastolic Blood Pressure 99 mmHg 89 mmHg 88 mmHg [60-90 mmHg] *HI* (03/05/2013 04:19:00) (03/04/2013 23:33:00) (03/05/2013 08:12:00) Respiratory Rate [14-20 17 BRMIN 18 BRMIN 18 BRMIN BRMIN] (03/05/2013 08:12:00) (03/05/2013 04:19:00) (03/04/2013 23:33:00) Peripheral Pulse Rate 86 bpm 77 bpm 82 bpm [60-100 bpm] (03/05/2013 08:12:00) (03/05/2013 04:19:00) (03/04/2013 23:33: 00) Weight 111.364 kg 111.364 kg (03/04/2013 04:08:00) (03/03/2013 21:16:00) Results BEDSIDE GLUCOSE TESTING Most recent to oldest 1 2 3 [Reference Range]: Glucose POC [70-99 mg/dL] 118 mg/dL 1 96 mg/dL 2 96 mg/dL 3 *HI* (03/04/2013 20:40:00) (03/04/2013 16:37:00) (03/05/2013 06:14:00) Gluc POC Comment 1 Notified RN/MD Notified RN/MD *NA* *NA* (03/04/2013 16:37:00) (03/04/2013 11:27:00) 1Interpretive Data: Upper Reportable Limit: 200 mg/dL.2Interpretive Data: Upper Reportable Limit: 200 mg/dL.3Interpretive Data: Upper Reportable Limit: 200 mg/dL.URINALYSIS Most recent to oldest [Reference Range]: 1 2 3 UA Turbidity [Clear] Clear (03/04/2013 00:21:00) UA Color [Yellow] Yellow *NA* (03/04/2013 00:21:00) UA pH [5.0-8.0] 6.0 (03/04/2013 00:21:00) UA Spec Grav [<=1.030] 1.015 (03/04/2013 00:21:00) UA Glucose [Negative mg/dL] 250 mg/dL *ABN* (03/04/2013 00:21:00) UA Blood [Negative] Negative (03/04/2013 00:21:00) UA Ketones [Negative mg/dL] Negative mg/dL *NA* (03/04/2013 00:21:00) UA Protein [Negative mg/dL] Negative mg/dL (03/04/2013 00:21:00) UA Urobilinogen [0.1-1.0 EU/dL] 0.2 EU/dL (03/04/2013 00:21:00) UA Bili [Negative] Negative *NA* (03/04/2013 00:21:00) UA Leuk Est [Negative] Negative (03/04/2013 00:21:00) UA Nitrite [Negative] Negative (03/04/2013 00:21:00) UA WBC [None Seen] None Seen (03/04/2013 00:21:00) UA RBC [0-2] None Seen (03/04/2013 00:21:00) UA Sq Epi [Few] None Seen (03/04/2013 00:21:00) CHEMISTRY Most recent to oldest 1 2 3 [Reference Range]: Sodium Lvl [135-145 mEq/L] 141 mEq/L 137 mEq/L (03/05/2013 07:18:00) (03/03/2013 21:55:00) Potassium Lvl [3.5-5.1 3.8 mEq/L 4.2 mEq/L mEq/L] (03/05/2013 07:18:00) (03/03/2013 21:55:00) Chloride Lvl [95-109 mEq/L] 103 mEq/L 102 mEq/L (03/05/2013 07:18:00) (03/03/2013 21:55:00) CO2 [24-32 mEq/L] 25 mEq/L 25 mEq/L (03/05/2013 07:18:00) (03/03/2013 21:55:00) AGAP [10.0-20.0 mEq/L] 16.8 mEq/L 14.2 mEq/L (03/05/2013 07:18:00) (03/03/2013 21:55:00) Creatinine Lvl [0.5-1.4 0.9 mg/dL 1.2 mg/dL mg/dL] (03/05/2013 07:18:00) (03/03/2013 21:55:00) eGFR 89 mL/min/1.73m2 4 63 mL/min/1.73m2 5 *NA* *NA* (03/05/2013 07:18:00) (03/03/2013 21:55:00) BUN [7-22 mg/dL] 9 mg/dL 19 mg/dL (03/05/2013 07:18:00) (03/03/2013 21:55:00) Glucose Lvl [70-99 mg/dL] 131 mg/dL 6 188 mg/dL 7 *HI* *HI* (03/05/2013 07:18:00) (03/03/2013 21:55:00) Total Protein [6.4-8.4 7.5 g/dL g/dL] (03/03/2013 21:55:00) Albumin Lvl [3.5-5.0 g/dL] 3.5 g/dL (03/03/2013:55:00) Globulin [2.0-4.0 g/dL] 4.0 g/dL (03/03/2013:55:00) A/G Ratio [0.7-1.6] 0.9 (03/03/2013:55:00) Calcium Lvl [8.5-10.5 8.4 mg/dL 9.0 mg/dL mg/dL] *LOW* (03/03/2013:55:00) (03/05/2013 07:18:00) Phosphorus [2.5-4.5 mg/dL] 3.1 mg/dL 4.0 mg/dL (03/05/2013 07:18:00) (03/04/2013 03:00:00) Magnesium Lvl [1.8-2.4 1.4 mg/dL 1.8 mg/dL mg/dL] *LOW* (03/04/2013 03:00:00) (03/05/2013 07:18:00) ALT [0-65 unit/L] 27 unit/L (03/03/2013:55:00) AST [0-37 unit/L] 18 unit/L (03/03/2013:55:00) Alk Phos [39-136 unit/L] 72 unit/L (03/03/2013:55:00) Bili Total [0.2-1.3 mg/dL] 0.5 mg/dL (03/03/2013:55:00) Bili Direct [0.0-0.3 mg/dL] 0.1 mg/dL (03/03/2013:55:00) Bili Indirect [0.0-1.0 0.4 mg/dL mg/dL] (03/03/2013 21:55:00) Lipase Lvl [73-393 unit/L] 104 unit/L (03/03/2013 21:55:00) Lactic Acid Lvl [0.5-2.2 1.0 mMol/L mMol/L] (03/03/2013 21:55:00) Total CK [12-191 unit/L] 60 unit/L 65 unit/L 63 unit/L (03/04/2013 22:23:24) (03/04/2013 18:22:37) (03/04/2013 13:56:00) Troponin-I [0.00-0.40 <0.02 ng/mL ng/mL] (03/04/2013 13:56:00) Temp Yassine 37.0 DegC *NA* (03/03/2013 23:20:59) pH Yassine [7.28-7.42] 7.37 (03/03/2013 23:20:59) pCO2 Yassine [38-52 mmHg] 40 mmHg (03/03/2013 23:20:59) pO2 Yassine [20-49 mmHg] 80 mmHg *HI* (03/03/2013 23:20:59) HCO3 Yassine [22-26 mMol/L] 23 mMol/L (03/03/2013 23:20:59) BE Yassine [-2-2 mMol/L] -2 mMol/L (03/03/2013 23:20:59) O2 Sat Yassine [40.0-70.0 %] 95.4 % *HI* (03/03/2013 23:20:59) 4Result Comment: The eGFR is calculated using the CKD-EPI formula. In most young , healthy individualsthe eGFR will be >90 mL/min/1.73m2. The eGFR declines with age. An eGFR of 60-89 may be normal in some populations, particularly the elderly, for whom the CKD-EPI formula has not been extensively validated. Use of the eGFR is not recommended in the following populations: Individuals with unstable creatinine concentrations, including patients and those with serious co-morbid conditions. Patients with extremes in muscle mass or diet. The data above are obtained from the National Kidney Disease Education Program ( NKDEP) which additionally recommends that when the eGFR is used in patients with extremes of body mass index for purposesof drug dosing, the eGFR should be multiplied by the estimated BMI.5Result Comment: The eGFR is calculated using the CKD-EPI formula. In most young, healthy individualsthe eGFR will be >90 mL/ min/1.73m2. The eGFR declines with age. An eGFR of 60-89 may be normal in some populations, particularly the elderly, for whom the CKD-EPI formula has not been extensively validated. Use of the eGFR is not recommended in the following populations: Individuals with unstable creatinine concentrations, including patients and those with serious co-morbid conditions. Patients with extremes in muscle mass or diet. The data above are obtained from the National Kidney Disease Education Program ( NKDEP) which additionally recommends that when the eGFR is used in patients with extremes of body mass index for purposesof drug dosing, the eGFR should be multiplied by the estimated BMI.6Interpretive Data: Adult reference range values reflect the clinical guidelines of the [place] [employer].7Interpretive Data: Adult reference range values reflect the clinical guidelines of the [place] [employer].HEMATOLOGY Most recent to oldest [Reference 1 2 3 Range]: WBC [3.7-10.4 K/CMM] 6.8 K/CMM 13.8 K/CMM (03/05/2013 07:18:00) *HI* (03/03/2013 21:55:00) RBC [4.70-6.10 M/CMM] 4.48 M/CMM 4.83 M/CMM *LOW* (03/03/2013 21:55:00) (03/05/2013 07:18:00) Hgb [14.0-18.0 g/dL] 13.5 g/dL 13.8 g/dL *LOW* *LOW* (03/05/2013 07:18:00) (03/03/2013 21:55:00) Hct [42.0-54.0 %] 39.5 % 42.1 % *LOW* (03/03/2013 21:55:00) (03/05/2013 07:18:00) MCV [80.0-94.0 fL] 88.2 fL 87.0 fL (03/05/2013 07:18:00) (03/03/2013 21:55:00) MCH [27.0-31.0 pg] 30.2 pg 28.6 pg (03/05/2013 07:18:00) (03/03/2013 21:55:00) MCHC [32.0-36.0 g/dL] 34.2 g/dL 32.9 g/dL (03/05/2013 07:18:00) (03/03/2013 21:55:00) RDW [11.5-14.5 %] 13.7 % 12.7 % (03/05/2013 07:18:00) (03/03/2013 21:55:00) Platelet [133-450 K/CMM] 200 K/CMM 250 K/CMM (03/05/2013 07:18:00) (03/03/2013 21:55:00) MPV [7.4-10.4 fL] 8.1 fL 7.8 fL (03/05/2013 07:18:00) (03/03/2013 21:55:00) Segs [45.0-75.0 %] 57.5 % 84.3 % (03/05/2013 07:18:00) *HI* (03/03/2013 21:55:00) Lymphocytes [20.0-40.0 %] 30.4 % 10.2 % (03/05/2013 07:18:00) *LOW* (03/03/2013 21:55:00) Monocytes [2.0-12.0 %] 8.3 % 4.9 % (03/05/2013 07:18:00) (03/03/2013 21:55:00) Eosinophils [0.0-4.0 %] 3.1 % 0.6 % (03/05/2013 07:18:00) (03/03/2013 21:55:00) Basophils [0.0-1.0 %] 0.7 % 0.0 % (03/05/2013 07:18:00) (03/03/2013 21:55:00) Segs-Bands # [1.5-8.1 K/CMM] 3.9 K/CMM 11.6 K/CMM (03/05/2013 07:18:00) *HI* (03/03/2013 21:55:00) Lymphocytes # [1.0-5.5 K/CMM] 2.1 K/CMM 1.4 K/CMM (03/05/2013 07:18:00) (03/03/2013 21:55:00) Monocytes # [0.0-0.8 K/CMM] 0.6 K/CMM 0.7 K/CMM (03/05/2013 07:18:00) (03/03/2013 21:55:00) Eosinophils # [0.0-0.5 K/CMM] 0.2 K/CMM 0.1 K/CMM (03/05/2013 07:18:00) (03/03/2013 21:55:00) Basophils # [0.0-0.2 K/CMM] 0.0 K/CMM (03/03/2013 21:55:00) Plt Morph Normal (03/03/2013 21:55:00) PTT [22.9-35.8 seconds] 29.2 seconds 8 (03/03/2013 23:00:09) 8Interpretive Data: Heparin Therapeutic Range: 57 - 92 Seconds Procedures Procedures Date Related Diagnosis CABG x 5 - Coronary artery bypass grafts x 5 Knee replacement
[2018-01-22] MEDS ORDERED: CEFAZOLIN SODIUM 1 GM/VIAL ONE (13:47)
[2018-01-22] MEDS ORDERED: WATER FOR INJ,STERILE 10 ML ONE (13:47)
--- NOTE | 2018-01-22 14:46 | EDPHYS ---
Physician Documentation [facility] Name: Kemar Allen Age: 72 yrs Sex: Male : 1945 Arrival Date: 01/22/2018 Time: 12:54 Bed 25 Private MD: Finesse De La Rosa S ED Physician Abhinav Edwards HPI: 01/22 14:00 This 72 yrs old Male presents to ER via Ambulatory with complaints of Finger pm1 laceration. 14:48 The patient or guardian reports a laceration. The complaints affect the left index pm1 finger. Context: The problem was sustained at home, resulted from table saw injury. Onset: The symptoms/episode began/occurred yesterday, at 14:00. Modifying factors: The symptoms are alleviated by pressure to area, the symptoms are aggravated by nothing. Associated signs and symptoms: Pertinent negatives: cyanosis distally, decreased sensation distally, fever, numbness distally, tingling distally. Severity of symptoms: in the emergency department the symptoms are unchanged. Historical: - Allergies: 13:06 Doxycycline; ss - PMHx: 13:06 Diabetes - IDDM; COPD; Hypertension; ss - PSHx: 13:06 CABG; Heart stents; Joint replacement; toe amputatoin x 6; ss - Immunization history:: Adult Immunizations up to date, Last tetanus immunization: up to date. - Social history:: Smoking status: Smoking status: Patient/guardian denies using tobacco. - Ebola Screening: : Patient denies exposure to infectious person Patient denies travel to an Ebola-affected area in the 21 days before illness onset. ROS: 15:00 Constitutional: Negative for fever, chills, and weight loss, Eyes: Negative for injury, pm1 pain, redness, and discharge, ENT: Negative for injury, pain, and discharge, Neck: Negative for injury, pain, and swelling, Cardiovascular: Negative for chest pain, palpitations, and edema, Respiratory: Negative for shortness of breath, cough, wheezing, and pleuritic chest pain, Abdomen/GI: Negative for abdominal pain, nausea, vomiting, diarrhea, and constipation, Back: Negative for injury and pain, Skin: Negative for injury, rash, and discoloration. 15:00 Neuro: Negative for headache, weakness, numbness, tingling, and seizure. 15:00 MS/extremity: Positive for laceration, of the distal tip of left index finger, Negative for decreased range of motion, deformity. Exam: 15:00 Constitutional: This is a well developed, well nourished patient who is awake, alert, pm1 and in no acute distress. Head/Face: Normocephalic, atraumatic. Chest/axilla: Normal chest wall appearance and motion. Nontender with no deformity. No lesions are appreciated. Cardiovascular: Regular rate and rhythm with a normal S1 and S2. No gallops, murmurs, or rubs. Normal PMI, no JVD. No pulse deficits. Respiratory: Lungs have equal breath sounds bilaterally, clear to auscultation and percussion. No rales, rhonchi or wheezes noted. No increased work of breathing, no retractions or nasal flaring. Abdomen/GI: Soft, non-tender, with normal bowel sounds. No distension or tympany. No guarding or rebound. No evidence of tenderness throughout. Back: No spinal tenderness. No costovertebral tenderness. Full range of motion. 15:00 Musculoskeletal/extremity: Extremities: grossly normal except: laceration to left 2nd finger. 15:00 Skin: Appearance: normal except for affected area, injury, laceration(s), that can be described as no foreign body, irregular, small avulsion laceration to distal tip of left second finger with damage to nail. nail bed intact. 15:00 Neuro: Orientation: is normal, Motor: is normal, moves all fours. Vital Signs: 13:06 BP 169 / 104; Pulse 73; Resp 16; Temp 97.4(TE); Pulse Ox 100% on R/A; Weight 99.79 kg; ss Height 6 ft. 0 in. (182.88 cm); Pain 1/10; 13:06 Body Mass Index 29.84 (99.79 kg, 182.88 cm) ss MDM: 13:28 Patient medically screened. pm1 14:44 Data reviewed: vital signs. Data interpreted: Pulse oximetry: on room air is 100 %. pm1 Interpretation: normal. Counseling: I had a detailed discussion with the patient and/or guardian regarding: the historical points, exam findings, and any diagnostic results supporting the discharge/admit diagnosis, radiology results, the need for outpatient follow up, for definitive care, a hand specialist, to return to the emergency department if symptoms worsen or persist or if there are any questions or concerns that arise at home. 01/22 13:32 Order name: Hand Left 3 View XRAY; Complete Time: 16:34 pm1 01/22 13:32 Order name: Wound Care; Complete Time: 15:19 pm1 01/22 13:32 Order name: Dressing - Wound; Complete Time: 15:19 pm1 Administered Medications: 13:46 Drug: Ancef 1 grams Route: IM; Site: right gluteus; iw 14:45 Follow up: Response: No adverse reaction iw Disposition: 16:29 Co-signature as Attending Physician, Abhinav Edwards MD. Disposition: 01/22/18 14:46 Discharged to Home. Impression: Laceration without foreign body of left index finger with damage to nail. - Condition is Stable. - Discharge Instructions: Laceration Care, Adult, Nonsutured Laceration Care. - Prescriptions for Keflex 500 mg Oral Capsule - take 1 capsule by ORAL route every 6 hours for 10 days; 40 capsule. Tylenol- Codeine #3 300-30 mg Oral Tablet - take 2 tablets by ORAL route every 6 hours As needed; 20 tablet. - Medication Reconciliation Form, Thank You Letter, Antibiotic Education, Prescription Opioid Use form. - Follow up: Emergency Department; When: As needed; Reason: Worsening of condition. Follow up: Chico Smith MD; When: 2 - 3 days; Reason: Recheck today's complaints, Continuance of care, Re-evaluation by your physician. - Problem is new. - Symptoms have improved. Signatures: Dispatcher [employer] Jany Arreola RN RN Lori Hercules RN RN Austin Dickerson, DIRECTOR OF TESTING DIRECTOR OF TESTING pm1 Abhinav Edwards MD MD Corrections: (The following items were deleted from the chart) 15:19 14:46 01/22/2018 14:46 Discharged to Home. Impression: Laceration without foreign body iw of left index finger with damage to nail. Condition is Stable. Forms are Medication Reconciliation Form, Thank You Letter, Antibiotic Education, Prescription Opioid Use. Follow up: Emergency Department; When: As needed; Reason: Worsening of condition. Follow up: Chico Smith; When: 2 - 3 days; Reason: Recheck today's complaints, Continuance of care, Re-evaluation by your physician. Problem is new. Symptoms have improved. pm1
--- NOTE | 2018-01-22 14:46 | ER ---
Nurse's Notes [facility] Name: Kemar Allen Age: 72 yrs Sex: Male : 1945 Arrival Date: 01/22/2018 Time: 12:54 Bed 25 Private MD: Finesse De La Rosa S Diagnosis: Laceration without foreign body of left index finger with damage to nail Presentation: 01/22 13:04 Presenting complaint: Patient states: laceration to L index finger that occurred ss yesterday with a table saw. No bleeding noted at this time. Pt is concerned because he is diabetic and does not want to get an infection. Transition of care: patient was not received from another setting of care. Onset of symptoms was January 21, 2018. Risk Assessment: Do you want to hurt yourself or someone else? Patient reports no desire to harm self or others. Initial Sepsis Screen: Does the patient meet any 2 criteria? No. Patient's initial sepsis screen is negative. Does the patient have a suspected source of infection? No. Patient's initial sepsis screen is negative. Care prior to arrival: None. 13:04 Method Of Arrival: Ambulatory ss 13:04 Acuity: CORTES 4 ss Historical: - Allergies: 13:06 Doxycycline; ss - PMHx: 13:06 Diabetes - IDDM; COPD; Hypertension; ss - PSHx: 13:06 CABG; Heart stents; Joint replacement; toe amputatoin x 6; ss - Immunization history:: Adult Immunizations up to date, Last tetanus immunization: up to date. - Social history:: Smoking status: Smoking status: Patient/guardian denies using tobacco. - Ebola Screening: : Patient denies exposure to infectious person Patient denies travel to an Ebola-affected area in the 21 days before illness onset. Screenin:26 Abuse screen: Denies threats or abuse. Nutritional screening: No deficits noted. la1 Tuberculosis screening: No symptoms or risk factors identified. Fall Risk None identified. Assessment: 13:25 General: Appears in no apparent distress. Behavior is calm, cooperative. Pain: la1 Complains of pain in palmar aspect of distal phalanx of left index finger. Neuro: Level of Consciousness is awake, alert, obeys commands, Oriented to person, place, time, situation. Cardiovascular: Capillary refill < 3 seconds Patient's skin is warm and dry. Respiratory: Airway is patent Respiratory effort is even, unlabored, Respiratory pattern is regular, symmetrical. GI: No signs and/or symptoms were reported involving the gastrointestinal system. Musculoskeletal: Circulation, motion, and sensation intact. Range of motion: intact in all extremities. Injury Description: Laceration sustained to palmar aspect of distal phalanx of left index finger is superficial, 0.5 to 2.5 cm long, not bleeding, was sustained less than 30 minutes ago. a small amount of bleeding noted at this time. Vital Signs: 13:06 BP 169 / 104; Pulse 73; Resp 16; Temp 97.4(TE); Pulse Ox 100% on R/A; Weight 99.79 kg; ss Height 6 ft. 0 in. (182.88 cm); Pain 02/15; 13:06 Body Mass Index 29.84 (99.79 kg, 182.88 cm) ED Course: 12:54 Patient arrived in ED. mr 12:54 Finesse De La Rosa MD is Private Physician. mr 13:05 Triage completed. ss 13:06 Arm band placed on right wrist. ss 13:19 Austin Dickerson, KIKI is PHCP. pm1 13:19 Abhinav Edwards MD is Attending Physician. pm1 13:26 Call light in reach. Side rails up X 1. la1 13:43 Jany Lou, PAM is Primary Nurse. iw 14:04 Hand Left 3 View XRAY In Process Unspecified. EDMS 14:45 Chico Smith MD is Referral Physician. pm1 15:10 No provider procedures requiring assistance completed. Patient did not have IV access iw during this emergency room visit. Wound care: to avulsion located on left index finger was cleaned with soap and water, dressed with Neosporin, 4X4s, Patient tolerated well. Administered Medications: 13:46 Drug: Ancef 1 grams Route: IM; Site: right gluteus; iw 14:45 Follow up: Response: No adverse reaction iw Outcome: 14:46 Discharge ordered by . pm1 15:18 Discharged to home ambulatory. iw 15:18 Condition: good 15:18 Discharge instructions given to patient, Instructed on discharge instructions, follow up and referral plans. medication usage, Demonstrated understanding of instructions, follow-up care, medications, Prescriptions given X 2. 15:19 Patient left the ED. iw Signatures: Dispatcher [employer] EDMS Preston, Jacquie mr Jany Lou, PAM OROZCO iw Lori Hercules RN RN ss Luis Antonio Rocha RN RN la1 Austin Dickerson, NEWSCAST PRODUCER NEWSCAST PRODUCER pm1
--- NOTE | 2018-01-22 15:17 | RAD REPORT ---
EXAM DESCRIPTION: RAD - Hand Left 3 View - 01/22/2018 2:02 pm CLINICAL HISTORY: Hand pain, laceration to the second digit COMPARISON: None. FINDINGS: Site of laceration was not specified. There is evidence for soft tissue injury at the tip of the second digit and there is a subtle deformity to the tuft of the second digit distal phalanx. N o foreign body confirmed. Vascular calcifications are present. No other acute bone or joint finding seen. IP joint degenerative changes are present. There is degenerative change at the trapezium first metacarpal articulation. IMPRESSION: Soft tissue wound at the tip of the second digit with punctate area of bone loss involvi ng the tuft of the second distal phalanx. No foreign body confirmed.
[2018-01-22 15:46] VITALS: BP 169/104; TEMP 97.4; O2SAT 100
== END 2018-01-22 15:19 | disposition home or self-care (01) ==
LOC: ER 12:50
DX: S61.311A Laceration without foreign body of left index finger with damage to nail, initial encounter (principal); W29.8XXA Contact with other powered hand tools and household machinery, initial encounter; Y93.89 Activity, other specified; Y92.009 Unspecified place in unspecified non-institutional (private) residence as the place of occurrence of the external cause; Z88.1 Allergy status to other antibiotic agents; Z95.1 Presence of aortocoronary bypass graft; Z95.818 Presence of other cardiac implants and grafts; I10 Essential (primary) hypertension
CPT/HCPCS: 96372; 99284; J0690